=== PATIENT | female | born 1980 | race Two or more races ===

== ENCOUNTER 2022-12-26 06:22 | Day surgery (SDC) | payer OTHER | END 2022-12-26 11:05 | disposition home or self-care (01) | LOC: AMB-ENDOS 06:22 | PROVIDERS: ATTEND Colon & Rectal Surgery | DX: K60.3 Anal fistula (principal); R19.4 Change in bowel habit; K64.8 Other hemorrhoids; Z20.822 Contact with and (suspected) exposure to COVID-19 ==